=== PATIENT | female | born 1985 | race Hispanic/Latino ===

== ENCOUNTER → 2023-07-09 16:34 | Outpatient (REF) | payer BC, SELFPAY ==
[2023-07-09 17:08] LABS: % Basophils 0.3 % (0-2); % Immature Granulocytes 0.7 % (0-0.5); % Lymphocytes 20.4 % (20.5-51.1); % Monocytes 6.2 % (1.7-9.3); % Neutrophils 71.4 % (42.2-75.2); Absolute Eosinophils 0.1 10^3/uL (0-0.7); Absolute Immature Granulocytes 0.1 10^3/uL (0-0.05); Absolute Lymphocytes 2.1 10^3/uL (1.2-3.4); Absolute Monocytes 0.7 10^3/uL (0.1-0.6); Absolute Neutrophils 7.5 10^3/uL (1.4-6.5); Hemoglobin 12.7 g/dL (12.0-16.0); Mean Corp Hgb Conc. 34.3 g/dL (33.0-37.0); Mean Corpuscular Hgb 31.1 pg (27.0-31.0); Mean Corpuscular Volume 90.7 fL (81.0-99.0); Nucleated Red Blood Cells % 0 %; Platelet Count 230 10^3/uL (130-400); Red Blood Cell Count 4.08 10^6/uL (4.20-5.40); Red Cell Dist. Width 13.2 % (11.5-14.5); White Blood Cell Count 10.5 10^3/uL (4.8-10.8)
[2023-07-09 17:20] LABS: ALT (SGPT) 16 U/L (0-35); AST (SGOT) 23 U/L (14-36); Albumin 2.8 g/dl (3.5-5.0); Alkaline Phosphatase 173 U/L (38-126); Blood Urea Nitrogen 11 mg/dl (7-17); Calcium 9.1 mg/dl (8.4-10.2); Carbon Dioxide 23 mmol/L (22-30); Chloride 104 mmol/L (98-107); Glucose 110 mg/dl (70-99); Potassium 3.9 mmol/L (3.5-5.1); Sodium 133 mmol/L (135-145); Total Bilirubin 0.6 mg/dl (0.2-1.3); Total Protein 5.4 g/dl (6.3-8.2); eGFR > 60.00
[2023-07-09 17:39] LABS: Urine Albumin Negative (Neg - Trace); Urine Bilirubin Negative (Negative); Urine Character Slightly Cloudy (Clear); Urine Color Yellow; Urine Glucose Negative (Negative); Urine Ketone Trace (Negative); Urine Leukocyte Trace (Negative); Urine Nitrite Negative (Negative); Urine Occult Blood Negative (Negative); Urine Urobilinogen 1+ (Neg - 1+)
[2023-07-09 17:50] LABS: Urine Bacteria Many (Negative); Urine Red Blood Cell 0-2 /HPF (0-2)
[2023-07-09 18:01] LABS: Urine Protein < 5 mg/dl
== END ==
LOC: PNTC 16:34
PROVIDERS: ATTENDING PHYSICIAN Obstetrics & Gynecology
DX: O99.419 Diseases of the circulatory system complicating pregnancy, unspecified trimester (principal); O09.529 Supervision of elderly multigravida, unspecified trimester
CPT/HCPCS: 36415; 59025; 76815; 80053; 81003; 81015; 82570; 84156; 85025

== ENCOUNTER → 2023-07-12 16:00 | Outpatient (REF) | payer BC, SELFPAY | LOC: PNTC 16:00 | PROVIDERS: ATTENDING PHYSICIAN Obstetrics & Gynecology | DX: O09.529 Supervision of elderly multigravida, unspecified trimester (principal) | CPT/HCPCS: 59025 ==

== ENCOUNTER 2023-07-16 15:22 | Observation (INO) | payer BC, SELFPAY ==
[2023-07-16 15:25] VITALS: BMI 39.4
[2023-07-16 15:38] VITALS: BP 145/78
[2023-07-16] MEDS: TRANDATE 200 MG PO (15:46)
[2023-07-16] MEDS: TYLENOL 1000 MG PO (16:37)
[2023-07-16] MEDS: TRANDATE 400 MG PO (20:17)
[2023-07-16] MEDS: LOW STRENGTH ASPIRIN 81 MG PO (20:50)
[2023-07-17] MEDS: TRANDATE 400 MG PO (07:52)
== END 2023-07-17 11:00 | disposition home or self-care (01) ==
LOC: LDRP 15:22
PROVIDERS: ADMITTING PHYSICIAN Obstetrics & Gynecology; FAMILY PHYSICIAN Obstetrics & Gynecology
DX: O13.3 Gestational [pregnancy-induced] hypertension without significant proteinuria, third trimester (principal); Z3A.34 34 weeks gestation of pregnancy; O99.213 Obesity complicating pregnancy, third trimester; O09.523 Supervision of elderly multigravida, third trimester; O36.8330 Maternal care for abnormalities of the fetal heart rate or rhythm, third trimester, not applicable or unspecified; Z88.8 Allergy status to other drugs, medicaments and biological substances; Z91.048 Other nonmedicinal substance allergy status; O99.343 Other mental disorders complicating pregnancy, third trimester; F32.A Depression, unspecified
CPT/HCPCS: 59025; 80053; 81003; 81015; 82570; 84156; 84550; 85025; G0378

== ENCOUNTER → 2023-07-19 15:21 | Outpatient (REF) | payer BC, SELFPAY | LOC: PNTC 15:21 | PROVIDERS: ATTENDING PHYSICIAN Obstetrics & Gynecology | DX: O09.529 Supervision of elderly multigravida, unspecified trimester (principal); O99.419 Diseases of the circulatory system complicating pregnancy, unspecified trimester | CPT/HCPCS: 59025; 76815 ==

== ENCOUNTER → 2023-07-23 16:18 | Outpatient (REF) | payer BC, SELFPAY ==
[2023-07-23 17:12] LABS: Urine Albumin 1+ (Neg - Trace); Urine Bilirubin 1+ (Negative); Urine Character Clear (Clear); Urine Color Yellow; Urine Glucose Negative (Negative); Urine Ketone Negative (Negative); Urine Leukocyte 1+ (Negative); Urine Nitrite Negative (Negative); Urine Occult Blood 2+ (Negative); Urine Urobilinogen 1+ (Neg - 1+)
[2023-07-23 17:15] LABS: % Basophils 0.4 % (0-2); % Eosinophils 1.2 % (0-6); % Immature Granulocytes 0.6 % (0-0.5); % Lymphocytes 23.2 % (20.5-51.1); % Monocytes 6.2 % (1.7-9.3); % Neutrophils 68.4 % (42.2-75.2); Absolute Eosinophils 0.1 10^3/uL (0-0.7); Absolute Immature Granulocytes 0.1 10^3/uL (0-0.05); Absolute Lymphocytes 2.2 10^3/uL (1.2-3.4); Absolute Monocytes 0.6 10^3/uL (0.1-0.6); Absolute Neutrophils 6.5 10^3/uL (1.4-6.5); Hematocrit 36.2 % (37.0-47.0); Hemoglobin 12.6 g/dL (12.0-16.0); Mean Corp Hgb Conc. 34.8 g/dL (33.0-37.0); Mean Corpuscular Hgb 31.7 pg (27.0-31.0); Mean Platelet Volume 11.4 fL (7.4-10.4); Nucleated Red Blood Cells % 0 %; Platelet Count 203 10^3/uL (130-400); Red Blood Cell Count 3.98 10^6/uL (4.20-5.40); Red Cell Dist. Width 13.1 % (11.5-14.5); White Blood Cell Count 9.5 10^3/uL (4.8-10.8)
[2023-07-23 17:21] LABS: Urine Squamous Cell 26-30 /LPF (Few)
[2023-07-23 17:24] LABS: Urine Bacteria Many (Negative)
[2023-07-23 17:27] LABS: ALT (SGPT) 21 U/L (0-35); AST (SGOT) 31 U/L (14-36); Alkaline Phosphatase 238 U/L (38-126); Blood Urea Nitrogen 14 mg/dl (7-17); Calcium 8.8 mg/dl (8.4-10.2); Carbon Dioxide 21 mmol/L (22-30); Chloride 105 mmol/L (98-107); Glucose 96 mg/dl (70-99); Potassium 4.2 mmol/L (3.5-5.1); Sodium 129 mmol/L (135-145); Total Bilirubin 0.5 mg/dl (0.2-1.3); Total Protein 5.6 g/dl (6.3-8.2); Uric Acid 7.3 mg/dl (2.5-6.2); eGFR > 60.00
[2023-07-23 17:37] LABS: Protein/creatinine Ratio 0.3; Urine Protein 66 mg/dl
== END ==
LOC: PNTC 16:18
PROVIDERS: ATTENDING PHYSICIAN Obstetrics & Gynecology
DX: O09.529 Supervision of elderly multigravida, unspecified trimester (principal); O35.BXX0 Maternal care for other (suspected) fetal abnormality and damage, fetal cardiac anomalies, not applicable or unspecified
CPT/HCPCS: 36415; 59025; 76816; 80053; 81003; 81015; 82570; 84156; 84550; 85025

== ENCOUNTER 2023-07-26 15:33 | Inpatient (IN) | payer BC, SELFPAY ==
[2023-07-26 15:44] VITALS: BP 162/85; BMI 39.4
[2023-07-26] MEDS: ANCEF 10 IV (16:05)
[2023-07-26] MEDS: BICITRA 30 ML PO (16:05)
[2023-07-26] MEDS: TYLENOL 1000 MG PO (16:05)
[2023-07-26 16:08] LABS: Urine Albumin 2+ (Neg - Trace); Urine Bilirubin Negative (Negative); Urine Character Slightly Cloudy (Clear); Urine Color Yellow; Urine Glucose Negative (Negative); Urine Ketone 1+ (Negative); Urine Leukocyte Trace (Negative); Urine Nitrite Negative (Negative); Urine Occult Blood Negative (Negative); Urine Specific Gravity 1.015 (<1.030); Urine Urobilinogen Negative (Neg - 1+)
[2023-07-26 16:40] LABS: Urine Squamous Cell 26-30 /LPF (Few)
[2023-07-26 16:41] LABS: Urine Bacteria Many (Negative); Urine Red Blood Cell 0-2 /HPF (0-2); Urine White Cell 0-2 /HPF (0-5)
[2023-07-26] MEDS: PITOCIN 30 UNITS/NSS 500 ML IV ×2 (17:39→18:26)
[2023-07-26] MEDS: MAGNESIUM SULFATE 100 IV (18:11)
[2023-07-26] MEDS: MAGNESIUM SULFATE 40 GRAM 1000 IV (18:28)
[2023-07-26] MEDS: TORADOL 15 MG IV (19:39)
[2023-07-26] MEDS: TRANDATE 400 MG PO (19:40)
[2023-07-26] MEDS: CELEXA 10 MG PO (21:08)
[2023-07-27] MEDS: LR 1000 IV ×2 (01:59→14:07)
[2023-07-27] MEDS: TORADOL 15 MG IV ×3 (01:59→14:58)
[2023-07-27 06:23] LABS: Hematocrit 32.4 % (37.0-47.0); Hemoglobin 11.3 g/dL (12.0-16.0); Mean Corp Hgb Conc. 34.9 g/dL (33.0-37.0); Mean Corpuscular Hgb 31.2 pg (27.0-31.0); Mean Corpuscular Volume 89.5 fL (81.0-99.0); Mean Platelet Volume 11.3 fL (7.4-10.4); Platelet Count 191 10^3/uL (130-400); Red Blood Cell Count 3.62 10^6/uL (4.20-5.40)
--- NOTE | 2023-07-27 07:30 | W.PN.ANS.POP ---
Anesthesia Post Operative
- Anesthesia Post Op Note
Vital Signs Stable-See Nursing Note: Yes
Airway Patent: Yes
Adequate Pain Control: Yes
Change in Mental Status: No
Current Postoperative Nausea & Vomiting: No
Anesthesia Complications: No
General Anesthetic Recall: No (n/a)
Unplanned Admission: No
Post Op Hydration Adequate: Yes
[2023-07-27] MEDS: TRANDATE 400 MG PO ×2 (08:47→18:23)
[2023-07-27] MEDS: TYLENOL 650 MG PO ×2 (12:09→21:16)
[2023-07-27] MEDS: MAGNESIUM SULFATE 40 GRAM 1000 IV (14:02)
[2023-07-27 15:35] LABS: Syphilis/T. pallidum Ab Reflex Negative (Negative)
[2023-07-27] MEDS: CELEXA 10 MG PO (20:06)
[2023-07-28] MEDS: TRANDATE 400 MG PO ×4 (00:29→22:58)
[2023-07-28] MEDS: APRESOLINE 10 MG IV (06:24)
[2023-07-28] MEDS: PROCARDIA XL (EXTENDED RELEASE) 30 MG PO ×2 (06:51→21:54)
[2023-07-28] MEDS: SENOKOT-S 1 TABLET PO (07:40)
[2023-07-28] MEDS: TYLENOL 650 MG PO ×2 (07:40→18:38)
[2023-07-28] MEDS: MOTRIN 600 MG PO ×2 (07:41→18:38)
[2023-07-28] MEDS: PROCARDIA XL (EXTENDED RELEASE) PO (07:56)
[2023-07-28] MEDS: CELEXA 10 MG PO (19:40)
[2023-07-29] MEDS: TYLENOL 650 MG PO ×4 (00:40→21:59)
[2023-07-29] MEDS: MOTRIN 600 MG PO ×4 (00:43→21:59)
[2023-07-29] MEDS: PROCARDIA XL (EXTENDED RELEASE) 30 MG PO (07:00)
[2023-07-29] MEDS: TRANDATE 400 MG PO ×3 (09:31→22:03)
[2023-07-29] MEDS: SENOKOT-S 1 TABLET PO (15:57)
[2023-07-29] MEDS: CELEXA 10 MG PO (20:14)
[2023-07-29] MEDS: PROCARDIA XL (EXTENDED RELEASE) 60 MG PO (20:15)
[2023-07-30] MEDS: TYLENOL 650 MG PO (05:55)
[2023-07-30] MEDS: MOTRIN 600 MG PO (05:55)
[2023-07-30] MEDS: PROCARDIA XL (EXTENDED RELEASE) 60 MG PO (08:00)
[2023-07-30] MEDS: TRANDATE 400 MG PO (08:06)
--- NOTE | 2023-07-30 10:23 | W.DS.TRANS ---
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
-
Discharge Instructions:
Discharge Diagnosis/Procedures rcs, pec with sf
Instructions:
Stand-Alone Forms: LDRP Delivery
Changes to Home Medications: No
Discharge Medications:
DC Medications w/original date entered in [facility]
citalopram 10 mg tablet 10 mg PO DAILY Depression 06/28/23
labetalol 200 mg tablet 400 mg PO TID #126 tabs 07/30/23
nifedipine 30 mg tablet,extended release 60 mg PO BID #84 tabs 07/30/23
Home Medication Changes
Pending Results: No
Total time spent discharging patient (in min): 20
--- NOTE | 2023-07-30 10:40 | CON.CAR ---
Consultation
Consultation Request
Date/Time Consultation Requested: 07/29/2023 at 1624 hrs
Date/Time Consultation Performed: 07/30/2023 at 0830 hrs
Requesting Provider: Magaly Grimes DO
Performing Provider: Ulysses Vergara MD
Reason for Consultation: HTN management
Medical History
-
Chief Complaint: Patient underwent section for accelerating blood pressure
History of Present Illness:
PCP Garcia Girard DO
Filler In Clem Flowers MD
We are asked to see Dayanna Champagne for evaluation of her chronic hypertension. For accelerating hypertension she underwent section. Her blood pressure has been elevating since delivery. Just yesterday her nifedipine was increased from
60 mg daily to 60 mg twice daily. Her blood pressure is improving but there are still some readings above desirable range. There are no symptoms associated with her hypertension.
Past Medical History
Past Medical History: HTN, Psychiatric (Depression) and Other (Congenital hip disease)
Past Surgical History: Orthopedic (Right leg shortening, left hip surgery x 3. Left hip replacement. Hernia repair. sections)
Social History
Tobacco: Non-Smoker
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
Living: With Family
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
Family History
Family History: Other (Her father has CAD.)
Allergies / Home Medications
Allergy/AdvReac Type Severity Reaction Status Date / Time
adhesive tape Allergy Rash Verified 07/26/23 15:57
minocycline Allergy Rash Verified 07/26/23 15:57
Medication Instructions Recorded Confirmed Type
citalopram 10 mg tablet 10 mg PO DAILY Depression 06/28/23 07/26/23 History
labetalol 200 mg tablet 400 mg PO TID #126 tabs 07/30/23 Rx
nifedipine 30 mg tablet,extended 60 mg PO BID #84 tabs 07/30/23 Rx
release
Current medications in the hospital include citalopram 10 mg daily, labetalol 400 mg 3 times daily and nifedipine ER 60 mg twice daily
Review of Systems
-
History Source: Patient and Family ( present at bedside who provided a confirmatory history)
Constitutional: No Symptoms
Respiratory: No Symptoms and Other (No dyspnea.)
Cardiac: No Symptoms and Other (No chest pain or palpitations)
Neurological: No Symptoms and Other (No headaches.)
Physical Exam
Vital Signs
Temp Pulse Resp BP
99.1 F 76 20 175/107
07/26/23 15:44 07/30/23 08:06 07/26/23 15:44 07/30/23 08:06
Lab Results
07/27/23 06:02
Physical Exam
General: Well Developed and Well Nourished
HEENT: Normocephalic and Anicteric
Respiratory: Clear
Cardiac: S1/S2, Regular Rhythm and Other (No murmur rub or gallop)
GI: Soft
Skin: Warm and Dry
Neuro: AO x 3 and No Motor Deficits
Psych: Calm
Impression / Plan
-
Hypertension, accelerated
-I agree with using current labetalol and nifedipine over her typical outpatient regimen. Every 2 to 3 days her nifedipine could be increased if necessary.
-Once OB feels that her risks of related hypertension complications has subsided and her blood pressure improves she should transition back to her home regimen
Her aortic valve is unremarkable on the echocardiogram. I reviewed the images with Dr. Ramos and with the patient's who is a vault person.
No objections to hospital discharge.
Time spent today included examining the patient, reviewing old records, counseling the patient and , reviewing the echocardiogram images, and preparing this document.
Data Reviewed
-
Radiology: Image Personally Visualized and interpreted (Echocardiogram 05/23/2023 was reviewed personally by me. The aortic valve is trileaflet. The LV function is normal.)
Total Time Spent with Patient (in minutes): 78 minutes were spent on today's encounter
--- NOTE | 2023-07-30 12:51 | CM ---
Chart reviewed and CM met with parents Dayanna and Diallo
Parents live at listed address with their 3 yo son
Mom reports baby's name is Lucy
Mom plans to bottle feed her
Parents reports they have all needs for Baby, including car seat
Parents plan to take their to Dr Krishna at [facility] - mom will schedule appointment
== END 2023-07-30 12:16 | disposition home or self-care (01) | DRG 788 ==
LOC: LDRP 15:33
PROVIDERS: ADMITTING PHYSICIAN Obstetrics & Gynecology
PROC: 10D00Z1 Extraction of Products of Conception, Low, Open Approach (ICD-10-PCS; 2023-07-26)
DX: O11.4 Pre-existing hypertension with pre-eclampsia, complicating childbirth (principal); Z3A.35 35 weeks gestation of pregnancy; Z37.0 Single live birth; O34.219 Maternal care for unspecified type scar from previous cesarean delivery; N85.8 Other specified noninflammatory disorders of uterus; O99.214 Obesity complicating childbirth
CPT/HCPCS: 88307; 59025; 81003; 81015; 85027; 86780; 86850; 86900; 86901; 87086